=== PATIENT | female | born 1940 | race African-American/Black ===

== ENCOUNTER → 2017-12-08 | Outpatient (CLI) | payer MEDICARE ==
[~2017-12-08] MED LIST: ADVAI100I; ALBU0.63 NEB; ALBUTEROL INH; ALL220TA PO; AMLO5TAB2 PO; AMLO5TAB96 PO; ATEN-100 PO; ATEN25TA PO; CALC-197 PO; CALC1TAB87 PO; CYAN100017 OR; FISH1000 PO; LOVA10TA PO; LOVA20TA PO; MAXZ25; OMEGCAP PO; OMEP20TA OR; OXYC1TAB63 PO; TRIA37.5 PO; VENTAER INH
[2017-12-08 10:39] LABS: ALBUMIN 3.8 GM/DL (3.4-5.0); AST (GOT) 15 U/L (15-37); BICARBONATE 28.6 MEQ/L (21.0-32.0); BLOOD UREA NITROGEN 18 MG/DL (7-18); CALCIUM 9.9 MG/DL (8.5-10.1); CHLORIDE 103 MEQ/L (98-107); CREATININE 1.11 MG/DL (0.50-1.00); GLOMERULAR FILTRATION RATE 57 ML/MIN (>89); GLUCOSE,FASTING 86 MG/DL (74-99); SODIUM (NA) 141 MEQ/L (136-145)
[2017-12-08 10:45] LABS: AUTOMATED NEUTROPHIL # 2.4 TH/MM3 (1.8-7.7); BASOPHIL % 0.7 % (0.0-2.0); EOSINOPHIL # 0.1 TH/MM3 (0-0.4); EOSINOPHIL % 2.8 % (0.0-4.0); HEMATOCRIT 43.1 % (35.0-46.0); HEMOGLOBIN 14.3 GM/DL (11.6-15.3); LYMPH % 32.8 % (9.0-44.0); LYMPHOCYTE # 1.5 TH/MM3 (1.0-4.8); MEAN CORPUSCULAR HEMOGLOBIN 29.2 PG (27.0-34.0); MEAN CORPUSCULAR HGB CONC 33.2 % (32.0-36.0); MEAN PLATELET VOLUME 8.2 FL (7.0-11.0); MONO % 10.1 % (0.0-8.0); MONOCYTE # 0.5 TH/MM3 (0-0.9); NEUT % 53.6 % (16.0-70.0); PLATELET COUNT 331 TH/MM3 (150-450); RED BLOOD COUNT 4.89 MIL/MM3 (4.00-5.30); RED CELL DISTRIBUTION WIDTH 14.4 % (11.6-17.2); WHITE BLOOD COUNT 4.5 TH/MM3 (4.0-11.0)
[2017-12-08 10:46] LABS: ALKALINE PHOSPHATASE 67 U/L (45-117); ALT (GPT) 19 U/L (10-53); TOTAL BILIRUBIN ADULT 0.4 MG/DL (0.2-1.0); TOTAL PROTEIN 7.8 GM/DL (6.4-8.2)
--- NOTE | 2017-12-08 11:30 | RADRPT ---
EXAM DATE: 12/08/2017 11:13 AM EDT AGE/SEX: 77 years / Female INDICATIONS: Evaluate for pneumonia, pneumothorax or communicable disease. Pre op cyst removal from right ovary. CLINICAL DATA: This is the patient's initial encounter. Patient reports that signs and symptoms have been present for 1 day and indicates a pain score of 0/10. MEDICAL/SURGICAL HISTORY: Asthma. Hypertension. None. COMPARISON: No prior exams available for comparison. FINDINGS: The lungs are clear without infiltrate, nodule, or mass. There is no appreciable pleural effusion for technique. Heart and mediastinum are unremarkable. There are degenerative changes withi n the thoracic spine without any significant compression deformity for technique. CONCLUSION: No acute cardiopulmonary disease. Electronically signed by: Raymon Burgos MD 12/08/2017 11:29 AM EDT
--- NOTE | 2017-12-08 15:14 | EKG ---
Date Performed: 12/08/2017 Time Performed: 10:07:55 PTAGE: 77 years EKG: Sinus rhythm NORMAL ECG NO PREVIOUS TRACING DOCTOR: Sherin Gaffney Interpretating Date/Time 12/08/2017 15:13:54
== END ==
LOC: CPRE 09:35
PROVIDERS: ATTEND Obstetrics & Gynecology Gynecologic Oncology
DX: Z01.810 Encounter for preprocedural cardiovascular examination (principal); Z01.811 Encounter for preprocedural respiratory examination; Z01.812 Encounter for preprocedural laboratory examination; Z01.818 Encounter for other preprocedural examination; R19.09 Other intra-abdominal and pelvic swelling, mass and lump
CPT/HCPCS: 36415; 71046; 80053; 85025; 85610; 85730; 93005

== ENCOUNTER 2017-12-19 05:30 | Observation (INO) | payer MEDICARE ==
[~2017-12-19] VITALS: Ht 157.5 cm; Wt 65.7 kg
[~2017-12-19 05:30] MED LIST changes: -ADVAI100I; -ALBUTEROL INH; -ALL220TA PO; -AMLO5TAB96 PO; -ATEN-100 PO; -CALC-197 PO; -CYAN100017 OR; -FISH1000 PO; -LOVA20TA PO; -MAXZ25; -OMEP20TA OR; -OXYC1TAB63 PO
[2017-12-19] MEDS ORDERED: LACTATED RINGER'S 1000 ML IV PRN (06:15)
[2017-12-19] MEDS ORDERED: CHLORHEXIDINE GLUCONATE 2 % 1 PACK (2 CLOTHS) TOPICAL PRN (06:15)
[2017-12-19] MEDS ORDERED: POVIDONE IODINE 5% (ANTISEPSIS KIT) 4 APPLICATIONS EACH NARE PRN (06:15)
[2017-12-19] MEDS ORDERED: ceFAZolin 1,000 MG/NS 100 ML IV SCH ×2 (06:15)
[2017-12-19] MEDS ORDERED: HEPARIN SODIUM - SQ 10,000 UNITS/ML VIAL SQ SCH (06:15)
[2017-12-19] MEDS ORDERED: SODIUM CHLORID 0.9% 500 ML IV PRN (06:15)
[2017-12-19] MEDS ORDERED: METOPROLOL TARTRATE 25 MG TAB PO PRN (06:15)
[2017-12-19] MEDS ORDERED: LIDOCAINE 1%/EPINEPHrine 1:100,000 SOLN 30 ML VIAL ONE (07:25)
[2017-12-19] MEDS ORDERED: ONDANSETRON ODT 4 MG TAB PO PRN (11:00)
[2017-12-19] MEDS ORDERED: SODIUM CHLORIDE 0.9% FLUSH 10 ML FLUSH IV FLUSH PRN (11:00)
[2017-12-19] MEDS ORDERED: ALBUTEROL SULFATE 90 MCG/ACT HFA 8 GM INHALER INH PRN (11:00)
[2017-12-19] MEDS ORDERED: LORazepam 0.5 MG TAB PO PRN (11:00)
[2017-12-19] MEDS ORDERED: oxyCODONE/ACETAMINOPHEN 5 MG/325 MG TAB PO PRN (11:00)
[2017-12-19] MEDS ORDERED: diphenhydrAMINE HCL 25 MG CAP PO PRN (11:00)
[2017-12-19] MEDS: KETOROLAC TROMETHAMINE 30 MG/ML (IVP) VIAL IVP SCH ×2 (11:00→16:53)
[2017-12-19] MEDS ORDERED: DO NOT ADM ANY ANTICOAGULANT DRUGS PRN (11:04)
[2017-12-19] MEDS ORDERED: MIDAZOLAM HCL 2 MG/2 ML VIAL ONE (11:10)
[2017-12-19] MEDS: D5-1/2 NS + KCL 20 MEQ INJ 1,000 ML IV SCH ×2 (11:15→21:16)
[2017-12-19] MEDS ORDERED: *morphine SULFATE 4 MG/ML PERIprocedure ONLY ONE ×2 (12:09→12:36)
[2017-12-19 13:45] VITALS: BP 112/57; PULSE 84; PULSE 89; RESP 16; TEMP 97.9; O2SAT 95; O2SAT 96
[2017-12-19 16:29] VITALS: BP 118/70; PULSE 77; PULSE 78; RESP 16; RESP 20; TEMP 97.9; TEMP 98.4; O2SAT 97
[2017-12-19 20:08] VITALS: PULSE 63
[2017-12-19] MEDS: SODIUM CHLORIDE 0.9% FLUSH 10 ML FLUSH IV FLUSH SCH (21:00)
[2017-12-19 21:13] VITALS: BP 100/62; PULSE 78; RESP 18; TEMP 98.3; O2SAT 97
[2017-12-20] VITALS (9 sets, daily range): BP systolic 102–114; BP diastolic 60–73; PULSE 59–84; RESP 16–18; TEMP 97.7–98.2; O2SAT 92–97
[2017-12-20] MEDS: oxyCODONE/ACETAMINOPHEN 5 MG/325 MG TAB PO PRN ×2 (00:13→04:38)
[2017-12-20] MEDS: KETOROLAC TROMETHAMINE 30 MG/ML (IVP) VIAL IVP SCH ×2 (00:13→04:36)
[2017-12-20] MEDS: RESP: ALBUTEROL 0.63 MG/3 ML NEB (SCH) NEB ×2 (04:20→09:25)
[2017-12-20 05:52] LABS: AUTOMATED NEUTROPHIL # 3.7 TH/MM3 (1.8-7.7); BASOPHIL % 0.5 % (0.0-2.0); EOSINOPHIL % 0.2 % (0.0-4.0); HEMATOCRIT 36.1 % (35.0-46.0); HEMOGLOBIN 11.7 GM/DL (11.6-15.3); LYMPH % 29.6 % (9.0-44.0); LYMPHOCYTE # 1.8 TH/MM3 (1.0-4.8); MEAN CELL VOLUME 88.7 FL (80.0-100.0); MEAN CORPUSCULAR HEMOGLOBIN 28.7 PG (27.0-34.0); MEAN CORPUSCULAR HGB CONC 32.3 % (32.0-36.0); MEAN PLATELET VOLUME 7.8 FL (7.0-11.0); MONO % 9.6 % (0.0-8.0); MONOCYTE # 0.6 TH/MM3 (0-0.9); NEUT % 60.1 % (16.0-70.0); PLATELET COUNT 273 TH/MM3 (150-450); RED BLOOD COUNT 4.07 MIL/MM3 (4.00-5.30); RED CELL DISTRIBUTION WIDTH 14.3 % (11.6-17.2); WHITE BLOOD COUNT 6.2 TH/MM3 (4.0-11.0)
[2017-12-20 06:17] LABS: BICARBONATE 26.6 MEQ/L (21.0-32.0); CALCIUM 8.2 MG/DL (8.5-10.1); CREATININE 0.93 MG/DL (0.50-1.00)
[2017-12-20] MEDS ORDERED: OXYC1TAB63 PO (07:14)
--- NOTE | 2017-12-20 07:40 | MD ---
cc: Arabella Correa MD, Augusto MD Modad,Yoselyn Oglesby MD DATE OF DISCHARGE: 12/20/2017 PROCEDURE: 12/19/2017, laparoscopy with extensive lysis of adhesion, bilateral salpingo-oophorectomy for resection of right ovarian mass, left ureterolysis and an additional extensive lysis of adhesions. HOSPITAL COURSE: She did well in the early postoperative period and was hemodynamically stable tolerating oral intake, adequate pain control. Hramon catheter removed pending voiding. Ins and outs 3852/1950. Labs this morning, H and H 11.7 and 36.1. Electrolytes essentially normal, BUN and creatinine 11 and 0.93, potassium 3.7. PHYSICAL EXAM: VITAL SIGNS: She is afebrile, pulse 59, 84, respirations 16-18, blood pressure 100-114/62-73, O2 saturation 96-97%. She is alert in no acute distress. LUNGS: Clear. Mild basilar rales. CARDIOVASCULAR: Regular rate and rhythm. ABDOMEN: Soft. Incision is clean and dry. EXTREMITIES: Nontender. ASSESSMENT: Postoperative day #1, doing well in the early postoperative period. FINDINGS AT THE TIME OF SURGERY: Preliminary pathology reviewed. Activities and restrictions discussed. Questions were asked and answered. She expressed a good understanding. PLAN: I anticipate she will meet criteria for discharge to home today. She is to contact our office to ensure she has followup in 2 weeks. She is to resume prior medications. She will have a prescription for Percocet as needed. MD DI Billings/MARY , 07:18 AM , 07:38 AM
--- NOTE | 2017-12-20 08:20 | MP ---
cc: Arabella Correa MD, Augusto Modad, Patricia I MD DATE OF OPERATION: DATE OF PROCEDURE: 12/19/2017. PREOPERATIVE DIAGNOSIS: 1. Pelvic mass. 2. Status post prior hysterectomy and reportedly unilateral salpingo-oophorectomy. POSTOPERATIVE DIAGNOSIS: 1. Right ovarian mass. 2. Extensive intraperitoneal and pelvic adhesions preop status post prior hysterectomy and reportedly unilateral salpingo-oophorectomy. 3. Status post hysterectomy. PROCEDURE PERFORMED: Laparoscopy with extensive lysis of adhesions, Robotic-assisted laparoscopic bilateral salpingo-oophorectomy (with resection of right ovarian mass) left ureterolysis and extensive lysis of adhesions. 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 ANESTHESIA: General endotracheal anesthesia. ESTIMATED BLOOD LOSS: 75 mL IV FLUIDS: 1700 mL URINE OUTPUT: 300 mL HISTORY: A 77-year-old female found on exam and imaging to have a mass in the right pelvis approximately 4-5 cm. This has gradually increased in size over time. She is essentially asymptomatic and has been counseled regarding ongoing clinical and radiographic followup versus surgical intervention. Because of the slow but steady increase in size and her concerns about this mass. She was in favor of surgical removal, about which she has been counseled extensively. She is seen again in the preop holding area accompanied by family members with the findings in her case are again reviewed, plan of care was discussed. Questions were asked and answered. She expressed good understanding and would like to move forward. FINDINGS: Uterus and cervix are surgically absent. There is a 4-5 cm predominantly cystic mass in the right ovary that is fairly mobile. Minimal adhesions to the right pelvic sidewall. In the abdomen, there are extensive adhesions of omentum and loops of bowel to the anterior abdominal wall tracking from the pelvis into the abdomen, well above her previous midline surgical incision. In the pelvis, the colon is densely adherent to the left pelvic sidewall. It is overlying against the pelvic sidewall and the cul-de-sac is obliterated. After extensive dissection, it is determined that the left tube and ovary are in fact present and were not previously surgically removed. The tube and ovary are retroperitonealized densely adherent to the pelvic sidewall behind the colon. There were no peritoneal implants. No obvious adenopathy. No obvious areas of intestinal obstruction or pending obstruction. The preliminary pathology from the right ovarian mass shows it to be a benign cystic ovarian change. STATEMENT OF COMPLEXITY/MODIFIER: At least 90 minutes of additional surgical time were required to lyse extensive adhesions to gain safe access to the peritoneal cavity, to gain safe access to the pelvis to restore normal anatomy and to accomplish surgical objectives. Modifier should be applied accordingly. DESCRIPTION OF PROCEDURE: She was taken to the operating room and placed in dorsal lithotomy position, after general endotracheal anesthesia was administered. A timeout was undertaken. She was identified by sight recognition, hospital ID carroll and the proposed procedure was reviewed and confirmed. She was carefully positioned in padded Mert stirrups. Her arms were padded and secured to the sides. She was further secured to the operating table with egg crate padding and tape and a cross-chest over the shoulder fashion. All sites noted to be properly aligned with no malalignment or pressure points. She was prepped and draped in a sterile fashion. Harmon catheter placed in the bladder. Orogastric tube was in the stomach on suction. With manual elevation of the abdominal wall and direct laparoscopic visualization, a 5 mm cannula was introduced into the left upper quadrant. Carbon dioxide gas was insufflated and the extensive adhesions were noted. The only safe entry was quite high in the midline where a 12 mm cannula was introduced and lysis of adhesion was initiated with blunt and sharp dissection. This dissection was continued, freeing the omentum and loops of bowel from the anterior abdominal wall until the left lateral abdominal wall was cleared and to which an 18 mm cannula was introduced and until the right upper quadrant was cleared, and to which an 8 mm cannula was introduced and the original 5 mm cannula was exchanged for an 8 mm cannula. Additional lysis of adhesions were carried out until the omentum and loops of bowel were freed from the anterior abdominal wall. She was placed in Trendelenburg position. The anatomy was surveyed with findings as described above. Peritoneal washings were obtained for cytology. The small bowel was able to be mobilized from the pelvis and folded back on its mesenteric root and 3 Ray-Cally sponges were placed around the root of the small bowel mesentery. The robotic system was brought into the operative field, attached in usual fashion. Monopolar scissors, fenestrated bipolar forceps and ProGrasp manipulators were placed in arms number 1, 2, and 3 respectively and I took my place at the surgeon's console. The cecum was mobilized to allow it to be mobilized above the pelvic brim. The cecum and apparent appendix appeared normal, other than adhesions. The right retroperitoneal dissection was carried out, lateral and parallel to the gonadal vessels. The residual round ligament was isolated, cauterized and transected. The right ureter was identified. The right infundibulopelvic ligament was isolated. The intervening peritoneum was opened as the infundibulopelvic ligament was isolated to the level of the pelvic brim where it was cauterized and transected. Dissection was carried out distally until the right residual utero-ovarian ligament were isolated. Adhesions were removed and this tissue was cauterized and transected, thereby removing the right tube and ovary which was placed in the right pericolic gutter for later retrieval. Attention was directed toward the left side. Extensive time was spent lysing adhesions to mobilize the colon from the dense attachments to the left pelvic sidewall and to free adhesions from the cul-de-sac to determine whether or not there was persistent adnexal tissue in this area. The retroperitoneal dissection was continued further and indeed an intact left tube and ovary were visualized. It was densely adherent to the left pelvic sidewall as they were retroperitonealized but otherwise grossly appeared normal. Posterior dissection was continued until the left ureter was identified and with dissection a ureterolysis was carried out as the left ureter was freed along its course in the left pelvis to ensure that it was free from attachments to the left adnexa. The left infundibulopelvic ligament was isolated to the level of the pelvic brim. The intervening peritoneum was opened and the infundibulopelvic ligament was cauterized and transected. Dissection was carried out distally with continued dissection to elevate the adnexa and to ensure that the ureter was dropped posteriorly. Circumferential dissection removed additional adhesions until the left residual utero-ovarian ligament and left residual round ligaments were isolated, cauterized and transected, thereby removing the left tube and ovary, which were placed in the right pericolic gutter for later retrieval. The pelvis was thoroughly irrigated, and small bleeders rendered hemostatic with bipolar cautery. Hemostatic Afshin powder was placed to assist in continued hemostasis. It was felt that all reasonable surgical objectives had been completed. The robotic system was disengaged from the operative field. I reentered the bedside under sterile conditions. A 12 mm EndoCatch bag was used to capture both tubes and ovary, which were brought through the abdominal wall. The cystic component was drained and the specimens were removed through the 12 mm fascial defect intact within the EndoCatch bag. Next, each of the 3 Ray-Cally sponges that were placed in the peritoneal cavity were removed, they were removed individually, inspected and noted to be removed in their entirety. There were no remaining foreign objects in the peritoneal cavity. Preliminary counts were correct. The 12 mm fascial defect was closed with interrupted 0 Vicryl sutures using a fascial closure apparatus. They were tied securely which rendered the fascia completely airtight. The remaining cannulas were withdrawn. 3-0 Vicryl subcutaneous, 3-0 Vicryl subcuticular and Steri-Strips were used to close those incisions. Pelvic exam confirmed there were no remaining foreign objects in the vagina. Final counts were correct. She was returned to low lithotomy position and was pending reversal of anesthesia, when I left the operating room to precede her to the postanesthesia care unit. MD DI Billings/UMAIR , 07:42 AM , 08:18 AM
[2017-12-20] MEDS: SODIUM CHLORIDE 0.9% FLUSH 10 ML FLUSH IV FLUSH SCH (08:38)
[2017-12-20] MEDS ORDERED: PRAVASTATIN SOD 10 MG TAB PO SCH (09:00)
[2017-12-20] MEDS ORDERED: TRIAMTERENE/HCTZ 37.5 MG/25 MG TAB PO SCH (09:00)
[2017-12-20] MEDS ORDERED: amLODIPine BESYLATE 5 MG TAB PO SCH (09:00)
[2017-12-20] MEDS ORDERED: ATENOLOL 25 MG TAB PO SCH (09:00)
== END 2017-12-20 15:23 | disposition home or self-care (01) ==
LOC: HSDC 05:30 → HSDI 10:59 → HCIN 13:52
PROVIDERS: ADMIT Obstetrics & Gynecology Gynecologic Oncology; ATTEND Obstetrics & Gynecology Gynecologic Oncology
DX: N83.9 Noninflammatory disorder of ovary, fallopian tube and broad ligament, unspecified (principal); Z90.710 Acquired absence of both cervix and uterus; K66.0 Peritoneal adhesions (postprocedural) (postinfection); Z79.899 Other long term (current) drug therapy; D27.0 Benign neoplasm of right ovary
CPT/HCPCS: 00840; 58661; 80048; 85025; 86850; 86900; 86901; 88112; 88305; 88307; 88331; 94150; 94640; 94664; 96361; 96374; 96376; G0378; J0690; J1644; J1885; J2250; J2270; J3010; J3480; J7120; J7613